=== PATIENT | male | born 1985 | race Caucasian/White ===

== ENCOUNTER 2024-04-04 01:33 | Inpatient (IN) | payer OTHER, SELFPAY ==
[2024-04-03 21:36] VITALS: BP 144/80
--- NOTE | 2024-04-03 21:51 | ED.GENMED ---
History of Present Illness
General
Chief Complaint: Fever
Time Seen by Provider: 04/03/24 21:51
Travel History
Have you had any contact with someone who has COVID-19?: No
Do you have any symptoms of coronavirus? Fever > 100 degrees, chills, cough, shortness of breath, sore throat, loss of taste or smell, muscle aches, or headache?: No
History of Present Illness
History of Present Illness:
HPI: 2 nights ago, the patient had a general unwell feeling including some discomfort in the lower abdomen. He had a bowel movement the next day but did not feel that much better. He had some vague dysuria. He developed some chills/fevers and
primary care doctor placed him on Bactrim yesterday. He has been having increasing chills and fevers and came in here for further evaluation due to general unwell feeling. He reported some vague neck and head discomfort however there is been no
confusion.
EXAM:
GENERAL: Well appearing in no distress however is markedly tachycardic and febrile
HEENT: Moist oral mucosa, normal chin to chest with no meningeal signs
CARDIOVASCULAR: No murmurs, tachycardic heart rate, regular rhythm, No chest wall tenderness
PULMONARY: No respiratory distress, breath sounds are clear and equal
ABDOMEN: Soft with no peritoneal signs, no significant tenderness, no CVA tenderness, no prostate tenderness on digital rectal examination
NEUROLOGIC: Excellent strength all extremities, no coordination deficits
PSYCHIATRIC: Appropriate mental status, normal insight and judgement
EXTREMITIES: Nontender, no edema, moves all extremities equally
SKIN: No rash, no lesions
TIME OF INITIAL ENCOUNTER: 10:10 PM
NUMBER AND COMPLEXITY OF PROBLEMS ADDRESSED AT THE ENCOUNTER
� Chronic conditions affecting care: BPH, prediabetes
� Acute Exacerbation and/or Progression of Chronic Illness: This is an acute problem
� Differential Diagnosis includes: Sepsis, bacteremia, UTI, pyelonephritis, ureteral stone, based on physical exam doubt meningitis
AMOUNT AND/OR COMPLEXITY OF DATA TO BE REVIEWED AND ANALYZED
� I performed an independent evaluation of and my interpretation is:
EKG: Sinus 161, rate is significant proved compared to 09/16/2022
CT: CT shows some slight symmetric perinephric stranding, prostate is noted to be enlarged
X-rays: Chest x-ray shows no acute abnormality
Laboratory Studies: White count 8.9, 89% neutrophils, hemoglobin 15.1, creatinine 1.4, urinalysis shows slight increased number of white cells at 6-10, COVID negative
Other:
� Review of other/old records: I reviewed lab work from 2021 which was unremarkable
� Clinical information was obtained by an independent historian: None needed
� Prescriptions/Medications Considered but not given:
� Further testing considered but not performed:
RISK OF COMPLICATIONS AND/OR MORBIDITY OR MORTALITY OF PATIENT MANAGEMENT
� Social determinants of health affecting care: Lives at home with girlfriend
� Discussion with other providers: Hospitalist for admission, Dr. Brink
� Escalation of care including admission/observation vs risk of discharge considered: The patient arrived markedly tachycardic but with excellent mental status. He was febrile. Tylenol and fluids were given. Heart rate has
improved however the patient's heart rate is still in the 120s despite meds given. Will add Toradol. Urinalysis shows only questionable signs of infection�will give Rocephin.
Past History
Past History
ED Past Medical History: None; Negative Asthma, HTN, Hypercholesterolemia or NIDDM
ED Past Surgical History: Urological (vasectomy)
Social History
Tobacco: Non-smoker
Alcohol: None
Personal:
Living: with family
Employment: Employed
Phy Exam
Physical Exam
Physical Exam:
See HPI
Course
Orders/Labs/Results
Orders:
Orders
04/03/24 21:40
Electrocardiogram (*1) Urgent
Reason for Study: Tachycardia
EKG- Treatment ONCE
04/03/24 21:52
0.9% Sodium Chloride 1000 ml [Nss] 1,000 ml IV BOLUS
0.9% Sodium Chloride 1000 ml [Nss] 1,000 ml IV BOLUS
Acetaminophen [Tylenol] 1,000 mg PO NOW STA
CR Chest Portable - 1 View Urgent
Comment:
Reason For Exam: sepsis
Reason Study Needs to be Portable: Patient Unstable
04/03/24 22:08
CMP [Comprehensive Metabolic Panel] Urgent
COVID-19 Antigen Urgent
Source: Nasal Swab
Complete Blood Count/With Diff Urgent
Lactic Acid Urgent
Urinalysis Urgent
Date Specimen was Collected: 04/03/24
Time Specimen was Collected: 21:40
Urine Microscopic Urgent
Date Specimen was Collected: 04/03/24
Time Specimen was Collected: 21:40
Blood Culture Urgent
ANGELLA Source: Blood/Venous
Specimen Description:
Date Specimen was Collected: 04/03/24
Time Specimen was Collected: 21:40
Influenza A+B Rapid Molecular Urgent
ANGELLA Source: Nasal Swab
Specimen Description:
04/03/24 22:15
CT Abd/pel Without Iv Or Oral Urgent
Comment:
Reason For Exam: sepsis; lower abd pain; some dysuria
04/03/24 22:30
Blood Culture Routine
ANGELLA Source: Blood/Venous
Specimen Description:
04/03/24 23:49
CefTRIAXone [Rocephin] 1,000 mg IV NOW STA
Ketorolac [Toradol] 15 mg IV NOW STA
04/03/24 23:54
Sterile Water [Sterile Water For Injection] 10 ml .ROUTE .STK-MED ONE
Abnormal Lab Results
04/03/24
22:08
MPV 10.8 H fL
(7.4-10.4)
Abs Immat Gran (auto) 0.1 H 10^3/uL
(0-0.05)
Absolute Neuts (auto) 7.9 H 10^3/uL
(1.4-6.5)
Absolute Lymphs (auto) 0.6 L 10^3/uL
(1.2-3.4)
Immature Gran % 0.7 H %
(0-0.5)
Neutrophils % 89.2 H %
(42.2-75.2)
Lymphocytes % 6.9 L %
(20.5-51.1)
Creatinine 1.4 H mg/dL
(0.7-1.3)
Glucose 131 H mg/dl
(70-99)
Urine Ketones Trace A
(Negative)
Urine Occult Blood Trace A
(Negative)
Ur Leukocyte Esterase Trace A
(Negative)
Urine WBC 6-10 A /HPF
(0-5)
04/03/24 22:08
04/03/24 22:08
Vital Signs
Initial and Last Documented VS:
Initial Vital Signs
Temp Pulse Resp BP Pulse Ox
102.8 F H 180 26 144/80 97
04/03/24 21:36 04/03/24 21:36 04/03/24 21:36 04/03/24 21:36 04/03/24 21:36
Last Documented Vital Signs
Temp Pulse Resp BP Pulse Ox
100.1 F 114 20 134/62 96
04/03/24 23:07 04/03/24 23:50 04/03/24 23:50 04/03/24 23:07 04/03/24 23:07
*Critical Care Note
Total Time (30-74mins, 75-104mins- exclusive of procedures): Not Applicable
ED Attending Note
-
Portions of this chart may have been created with voice recognition software.� Occasional wrong word or��sound alike� substitutions may have occurred due to the inherent limitations of voice recognition software.
Discharge Plan
Departure
Patient Disposition: Admit
Date of Disposition: 04/03/24
Time of Disposition: 23:48
Presentation/result/management discussed w/ accepting MD/DO: Hospitalist
Discharge Problem:
Sepsis
Prescriptions:
No Action
Bactrim
1 tab PO BID
Patient Comments:
pt does not know mg
Referrals:
Jayson Dominguez DO [Family Provider] -
Interventions
Interventions:
*Risk Screen - Suicide Last Done: 04/03/24 21:36
*General Assessment Last Done: 04/03/24 22:26
*Neglect/Abuse Screening Last Done: 04/03/24 21:36
ED- Fall Risk Assessment Last Done: 04/03/24 22:42
*ED COVID-19 Vaccine History Last Done: 04/03/24 21:56
ED-Male Genitourinary Assessment Last Done: 04/03/24 22:42
ED- Neurological Assessment Last Done: 04/03/24 22:42
ED-Skin Assessment Last Done: 04/03/24 22:42
Discharge Date and Time
Print Language: SAUDI ARABIAN
[2024-04-03] MEDS: TYLENOL 1000 MG PO (22:06)
[2024-04-03 22:07] VITALS: BMI 34.0
[2024-04-03] MEDS: NSS 1000 IV ×2 (22:20→22:23)
[2024-04-03 22:23] LABS: % Basophils 0.2 % (0-2); % Eosinophils 0.1 % (0-6); % Immature Granulocytes 0.7 % (0-0.5); % Lymphocytes 6.9 % (20.5-51.1); % Monocytes 2.9 % (1.7-9.3); % Neutrophils 89.2 % (42.2-75.2); Absolute Immature Granulocytes 0.1 10^3/uL (0-0.05); Absolute Lymphocytes 0.6 10^3/uL (1.2-3.4); Absolute Monocytes 0.3 10^3/uL (0.1-0.6); Absolute Neutrophils 7.9 10^3/uL (1.4-6.5); Hematocrit 42.3 % (39.0-52.0); Hemoglobin 15.1 g/dL (13.0-18.0); Mean Corp Hgb Conc. 35.7 g/dL (33.0-37.0); Mean Corpuscular Hgb 29.5 pg (27.0-31.0); Mean Corpuscular Volume 82.8 fL (80.0-94.0); Mean Platelet Volume 10.8 fL (7.4-10.4); Nucleated Red Blood Cells % 0 % (-); Platelet Count 145 10^3/uL (130-400); Red Blood Cell Count 5.11 10^6/uL (4.70-6.10); Red Cell Dist. Width 12.6 % (11.5-14.5); White Blood Cell Count 8.9 10^3/uL (4.8-10.8)
[2024-04-03 22:25] LABS: Urine Albumin Trace (Neg - Trace); Urine Bilirubin Negative (Negative); Urine Character Clear (Clear); Urine Color Yellow; Urine Glucose Negative (Negative); Urine Ketone Trace (Negative); Urine Leukocyte Trace (Negative); Urine Nitrite Negative (Negative); Urine Occult Blood Trace (Negative); Urine Specific Gravity 1.025 (<1.030); Urine Urobilinogen 1+ (Neg - 1+)
[2024-04-03 22:27] VITALS: BP 127/66
[2024-04-03 22:40] LABS: COVID-19 Antigen Negative (Negative)
[2024-04-03 22:43] LABS: Lactic Acid 1.7 mmol/L (0.7-2.0)
--- NOTE | 2024-04-03 22:43 | EDRN ---
Pt says he developed pain across his lower back on that made him feel like he had to have a bowel movement. Pt had a bowel movement Friday morning which did not change his pain much. Pain radiated into b/l groin and pt had burning with
urination. Pt thought he had a fever but says he took his temp and it was normal. Pt called his doctor and was put on bactrim BID which he started Friday at noon. Pt has been working this weekend and says he has felt fatigued. Pt noted rigors
tonight and his girlfriend encouraged him to come to the ED for evaluation. Pt denies cp, sob, abd pain, n/v, diarrhea, cough, dizziness.
[2024-04-03 22:44] LABS: ALT (SGPT) 35 U/L (0-50); AST (SGOT) 29 U/L (17-59); Albumin 4.9 g/dl (3.5-5.0); Alkaline Phosphatase 82 U/L (38-126); Blood Urea Nitrogen 18 mg/dl (9-20); Calcium 9.8 mg/dl (8.4-10.2); Carbon Dioxide 25 mmol/L (22-30); Chloride 102 mmol/L (98-107); Estimated Creatinine Clearance -2 ml/min; Glucose 131 mg/dl (70-99); Sodium 136 mmol/L (135-145); Total Bilirubin 1.3 mg/dl (0.2-1.3); Total Protein 8.2 g/dl (6.3-8.2); eGFR > 60.00
[2024-04-03 22:48] LABS: Urine Red Blood Cell 0-2 /HPF (0-2)
[2024-04-03 23:07] VITALS: BP 134/62
[2024-04-03] MEDS: TORADOL 15 MG IV (23:59)
[2024-04-04] VITALS (8 sets, daily range): BP systolic 111–147; BP diastolic 57–82; BMI 34.4
[2024-04-04] MEDS: ROCEPHIN 1000 MG IV (00:02)
--- NOTE | 2024-04-04 01:19 | HPS.HSE ---
Family Physician
-
Family Physician: Jayson Dominguez
Chief Complaint
-
Fevers / Chills / Urinary symptoms
History of Present Illness
Patient is a 39y M with no significant PMH who presents to ED complaining of shaking chills, sweats, myalgias, malaise and urinary complaints. Patient states that his symptoms started on evening with dysuria, low back discomfort,
genital discomfort and urge to urinate. He developed intermittent shaking chills, headache, myalgias and general 'flu-like' symptoms. He called his PCP on Friday and was prescribed Bactrim DS BID for suspected prostatitis. He states that his
urinary symptoms did seem to improve gradually after he started the abx (he has taken a total of 3 doses thus far).
On Friday, he had intermittent chills and myalgias throughout the day. In the evening he had shaking chills and sweating so severe that his girlfriend encouraged him to present to the ED for evaluation.
On arrival to the ED, patient was tachycardic to 180 with temperature of 102.8.
Patient has no history of medical issues and takes no daily medications.
He denies any high risk exposures. 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
He does frequent outside work around the home and notes that he was bitten by something this past week on his L wrist.
Medical History
Past Medical History
Past Medical History: Reports None
Past Surgical History: Reports Other
Additional Past Surgical History:
Vasectomy
Social History
Tobacco: Non-smoker
Alcohol: Occasional
Drug: None
Personal: Partner
Living: With Family
Family History
Family History: Not pertinent
Allergies / Home Medications
Allergies reflects when Allergies were last updated in [facility].
Home Medications with original date entered in [facility]
Allergy/Medication List:
Allergies
Allergy/AdvReac Type Severity Reaction Status Date / Time
No Known Allergies Allergy Verified 04/03/24 21:39
Home Medications
Bactrim 1 tab PO BID 04/03/24
Review of Systems
-
History Source: Patient
A 12 point ROS was completed and negative except as noted: Yes
Constitutional: Reports Fever, Fatigue, Night Sweats and Chills
EENT: Denies Sore Throat
Respiratory: Denies Cough or Trouble Breathing
Cardiac: Denies Chest Pain or Palpitations
Abdomen/GI: Denies Abdominal Pain, Nausea, Vomiting, Diarrhea, Constipated, Bloody Stools or Black Stools
: Reports Dysuria, Frequency, Flank Pain and Urgency; Denies Bleeding or Discharge
Musculoskeletal: Reports Muscle Pain; Denies Joint Pain
Neurological: Reports Headache; Denies Dizzy
Psych: Denies Depression or Anxiety
Physical Exam
Vital Signs
Vital Signs
Temp Pulse Resp BP Pulse Ox
100.1 F 114 24 116/57 96
04/03/24 23:07 04/04/24 00:00 04/04/24 00:00 04/04/24 00:00 04/03/24 23:07
Physical Exam
General: Other (39y M in no acute distress.)
HEENT: Moist mucous membranes and PERRLA
Respiratory: Clear; No Wheezes, Rales or Rhonchi
Cardiac: S1/S2 and Regular Rhythm; No Murmur
GI: Soft, Non Tender, Non Distended and Normal Bowel Sounds
Genito-urinary: No costovertebral tender
Musculoskeletal: No Clubbing, No Cyanosis and No Edema
Skin: Other (Small red spot on L wrist not currently c/w erythema migrans.)
Neuro: AO x 3 and Other (No nuchal rigidity or meningismus.)
Psych: No Anxious or Depressed
Laboratory Results
-
04/03/24 22:08
05/04/24 22:08
Laboratory Results
Lactic Acid 1.7 mmol/L (0.7-2.0) 04/03/24 22:08
Total Bilirubin 1.3 mg/dl (0.2-1.3) 04/03/24 22:08
AST 29 U/L (17-59) 04/03/24 22:08
ALT 35 U/L (0-50) 04/03/24 22:08
Alkaline Phosphatase 82 U/L (38-126) 04/03/24 22:08
Impression/Plan
-
A/P: Patient is a 39y M with no significant PMH who presents to ED complaining of three days of progressive urinary complaints with fevers, chills and myalgias.
UTI / Prostatitis
Sepsis secondary to the above
- Admit for further evaluation and treatment.
- Patient presents with fever, tachycardia and tachypnea with symptoms suggestive of urinary / prostate source of infection.
- Continue IV abx - will add doxycycline for ceftriaxone for prostatitis coverage and possibility of Lyme.
- Check PSA - ALYSSIA done in the ED and no marked tenderness appreciated.
- CT reviewed and is generally unremarkable - but the prostate is enlarged and I do appreciate a small area of hypodensity in the L which may simply be early calcification.
- Follow for clinical improvement with continued abx (already had noted improvement in urinary complaints - but not fevers / chills - on Bactrim).
- Supportive care including IVFs, antipyretics, etc.
- Follow-up available culture data and adjust treatment as warranted.
Renal Insufficiency
- SCr = 1.4 which is not significantly elevated from prior baselines (up to 1.2).
- IVFs as noted above and follow for changes.
DVT Prophylaxis: Lovenox
Code Status: Full
[2024-04-04] MEDS: LR 1000 IV ×3 (03:03→21:31)
[2024-04-04] MEDS: DILAUDID 0.5 MG IV (03:03)
[2024-04-04] MEDS: ZOFRAN 4 MG IV (03:11)
[2024-04-04] MEDS: VIBRAMYCIN 260 MG IV (03:14)
[2024-04-04 05:57] LABS: Hematocrit 45.6 % (39.0-52.0); Hemoglobin 15.2 g/dL (13.0-18.0); Mean Corp Hgb Conc. 33.3 g/dL (33.0-37.0); Mean Corpuscular Hgb 29.3 pg (27.0-31.0); Mean Corpuscular Volume 87.9 fL (80.0-94.0); Mean Platelet Volume 10.6 fL (7.4-10.4); Platelet Count 115 10^3/uL (130-400); Red Blood Cell Count 5.19 10^6/uL (4.70-6.10); Red Cell Dist. Width 12.8 % (11.5-14.5); White Blood Cell Count 6.3 10^3/uL (4.8-10.8)
[2024-04-04] MEDS: TORADOL 10 MG IV (06:20)
[2024-04-04 06:28] LABS: Blood Urea Nitrogen 14 mg/dl (9-20); Calcium 9.2 mg/dl (8.4-10.2); Carbon Dioxide 23 mmol/L (22-30); Chloride 106 mmol/L (98-107); Estimated Creatinine Clearance 105 ml/min; Glucose 123 mg/dl (70-99); Potassium 4.6 mmol/L (3.5-5.1); Sodium 137 mmol/L (135-145); eGFR > 60.00
[2024-04-04 06:48] LABS: PSA, Total - Screen 3.02 ng/ml (0.0-4.0)
[2024-04-04] MEDS: TYLENOL 650 MG PO ×3 (08:02→21:32)
--- NOTE | 2024-04-04 08:38 | W.PN.HOSP.TC ---
Today's Communication/Plan
-
Change antibiotics to levofloxacin
Increase Toradol
Stop Dilaudid
Hemoglobin A1c
Urine culture
Labs in the morning
Assessment / Plan
Assessment / Plan
Gen-AAOx3, NAD
HEENT-NC, AT, anicteric, clear oral mm
Neck-supple
CV-reg, no M, +S1/S2
Lungs-clear B/L
Abd-soft, NT, ND
Ext-no edema
Musculoskeletal-no cyanosis, clubbing
Skin-warm and dry
Neuro-grossly non-focal
Psych-calm, cooperative
Sepsis due to acute prostatitis -hemodynamically stable. Change antibiotics to levofloxacin. Blood cultures pending, send urine culture. Mild prostatic enlargement on CT scan noted. He had urinary symptoms prior to initiating outpatient
antibiotics.
Doubt Lyme disease. Discontinue doxycycline.
REENA -suspect due to sepsis, prostatitis. Creatinine 1.4 on admission, 1.3 today. Continue IV fluids.
Headache -likely related to sepsis. Discontinue opiates. Increase Toradol to 30 mg IV every 6 hours as needed. Discussed with nurse.
Hyperglycemia -rule out DM2. Check hemoglobin A1c.
Acute thrombocytopenia -likely due to sepsis. Platelet count 115k, monitor for now.
Obesity due to excess calories
Full code
Anticipated Discharge: 24 - 48 hours
Subjective/Interval History
-
Date of Service: April 04, 2024
Patient seen and examined. Complaining of not feeling well, headache.
Objective Data
-
Labs:
Laboratory Results
04/03/24 04/04/24
22:08 05:40
WBC 8.9 6.3
Hgb 15.1 15.2
Hct 42.3 45.6
Plt Count 145 115 L D
Sodium 136 137
Potassium 4.0 4.6
Chloride 102 106
Carbon Dioxide 25 23
BUN 18 14
Creatinine 1.4 H 1.3
Glucose 131 H 123 H
Calcium 9.8 9.2
Total Bilirubin 1.3
AST 29
ALT 35
Alkaline Phosphatase 82
Vital Signs:
Vital Signs
Temp Pulse Resp BP Pulse Ox
101.3 F H 104 18 146/82 94
04/04/24 07:25 04/04/24 07:25 04/04/24 07:25 04/04/24 07:25 04/04/24 07:25
I&O
04/03/24 04/04/24 04/05/24
06:59 06:59 06:59
Intake Total 480 / 480
Balance 480 / 480
Review of Systems
-
History Source: Patient
All other systems: Reviewed and negative
[2024-04-04] MEDS: TORADOL 30 MG IV ×2 (08:55→17:18)
[2024-04-04] MEDS: LEVAQUIN 150 IV (08:55)
--- NOTE | 2024-04-04 11:28 | CM ---
CM following re: discharge planning.
Reviewed pt's chart, met with pt. Pt's mother, stepfather and 5 year old son at bedside.
Pt is a 39 year old male, admitted with primary dx of Fever.
Pt reports he lives with spouse and 2 young children in a 2SH, 2 steps to enter. 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
PCP: Jayson Dominguez
Pharmacy: [facility]
D/C plan: home with anticipated no needs. Family to transport at discharge.
CM will follow with discharge plan updates as needed.
[2024-04-04 12:22] LABS: Glycohemoglobin (HgbA1c) 5.7 % (4.0-5.6)
[2024-04-04] MEDS: LOVENOX 40 MG SC (17:17)
[2024-04-05] MEDS: TORADOL 30 MG IV ×2 (02:48→20:29)
[2024-04-05 03:30] VITALS: BP 128/82
[2024-04-05] MEDS: TYLENOL 650 MG PO ×2 (06:01→12:37)
[2024-04-05 06:45] LABS: % Basophils 0.7 % (0-2); % Eosinophils 0.3 % (0-6); % Immature Granulocytes 0.7 % (0-0.5); % Lymphocytes 20.5 % (20.5-51.1); % Monocytes 12.3 % (1.7-9.3); % Neutrophils 65.5 % (42.2-75.2); Absolute Lymphocytes 0.6 10^3/uL (1.2-3.4); Absolute Monocytes 0.4 10^3/uL (0.1-0.6); Hematocrit 37.8 % (39.0-52.0); Hemoglobin 12.9 g/dL (13.0-18.0); Mean Corp Hgb Conc. 34.1 g/dL (33.0-37.0); Mean Corpuscular Hgb 29.5 pg (27.0-31.0); Mean Corpuscular Volume 86.5 fL (80.0-94.0); Nucleated Red Blood Cells % 0 % (-); Red Blood Cell Count 4.37 10^6/uL (4.70-6.10); Red Cell Dist. Width 12.8 % (11.5-14.5)
[2024-04-05 07:00] LABS: Blood Urea Nitrogen 11 mg/dl (9-20); Calcium 9.1 mg/dl (8.4-10.2); Carbon Dioxide 26 mmol/L (22-30); Chloride 104 mmol/L (98-107); Estimated Creatinine Clearance 124 ml/min; Glucose 105 mg/dl (70-99); Potassium 4.4 mmol/L (3.5-5.1); Sodium 133 mmol/L (135-145); eGFR > 60.00
[2024-04-05 07:25] VITALS: BP 123/76
[2024-04-05 08:15] LABS: Mean Platelet Volume 10.9 fL (7.4-10.4); Platelet Count 99 10^3/uL (130-400)
[2024-04-05] MEDS: LEVAQUIN 150 IV (09:41)
[2024-04-05 11:38] VITALS: BP 107/71
--- NOTE | 2024-04-05 12:54 | W.PN.HOSP.TC ---
Today's Communication/Plan
-
Await culture data
IV fluids for today
Antibiotics continued
Assessment / Plan
Assessment / Plan
Gen-AAOx3, NAD
HEENT-NC, AT, anicteric, clear oral mm
Neck-supple
CV-reg, no M, +S1/S2
Lungs-clear B/L
Abd-soft, NT, ND
Ext-no edema
Musculoskeletal-no cyanosis, clubbing
Skin-warm and dry
Neuro-grossly non-focal
Psych-calm, cooperative
Sepsis due to acute prostatitis -hemodynamically stable. Change antibiotics to levofloxacin. Blood cultures preliminary negative so far. Urine culture is in lab. Mild prostatic enlargement on CT scan noted. He had urinary symptoms prior to
initiating outpatient antibiotics.
Doubt Lyme disease. Discontinue doxycycline.
REENA -suspect due to sepsis, prostatitis. Creatinine 1.4 on admission, 1.1 today. Continue IV fluids.
Headache -likely related to sepsis. Discontinue opiates. Increase Toradol to 30 mg IV every 6 hours as needed. Discussed with nurse.
Hyperglycemia -rule out DM2. Check hemoglobin A1c.
Acute thrombocytopenia -likely due to sepsis. Platelet count 115k, monitor for now.
Obesity due to excess calories
Full code
Discussed with family member at bedside
Anticipated Discharge: Within 24 hours
Subjective/Interval History
-
Date of Service: April 05, 2024
States appetite slowly starting to improve
Status of mild dysuria which has improved significantly since admission
Objective Data
-
Labs:
Laboratory Results
04/05/24
05:42
WBC 3.0 L
Hgb 12.9 L
Hct 37.8 L
Plt Count 99 L
Sodium 133 L
Potassium 4.4
Chloride 104
Carbon Dioxide 26
BUN 11
Creatinine 1.1
Glucose 105 H
Calcium 9.1
Vital Signs:
Vital Signs
Temp Pulse Resp BP Pulse Ox
98 F 77 20 107/71 95
04/05/24 11:38 04/05/24 11:38 04/05/24 11:38 04/05/24 11:38 04/05/24 11:38
I&O
04/04/24 04/05/24 04/06/24
06:59 06:59 06:59
Intake Total 480 / 480 1440 / 1440
Output Total 350 / 350
Balance 480 / 480 1090 / 1090
--- NOTE | 2024-04-05 13:27 | CM ---
Reviewed the chart notes. CM continues to be available to patient/family and is monitoring medical plan for needs at discharge.
Plan: Discharge to home with no needs being identified at this time.
[2024-04-05 15:40] VITALS: BP 133/83
[2024-04-05 16:26] LABS: Lyme Antibody Screen, EIA Presump. Positive (Negative)
[2024-04-05] MEDS: LR 1000 IV (16:31)
[2024-04-05 23:45] VITALS: BP 125/84
[2024-04-06] MEDS: LR 1000 IV (01:21)
[2024-04-06] MEDS: TYLENOL 650 MG PO (04:53)
[2024-04-06 07:25] VITALS: BP 128/83
[2024-04-06 08:21] LABS: % Basophils 0.3 % (0-2); % Eosinophils 0.3 % (0-6); % Immature Granulocytes 0.3 % (0-0.5); % Lymphocytes 28.5 % (20.5-51.1); % Monocytes 11.5 % (1.7-9.3); % Neutrophils 59.1 % (42.2-75.2); Absolute Lymphocytes 0.8 10^3/uL (1.2-3.4); Absolute Monocytes 0.3 10^3/uL (0.1-0.6); Absolute Neutrophils 1.7 10^3/uL (1.4-6.5); Hematocrit 38.9 % (39.0-52.0); Hemoglobin 13.4 g/dL (13.0-18.0); Mean Corp Hgb Conc. 34.4 g/dL (33.0-37.0); Mean Corpuscular Hgb 29.1 pg (27.0-31.0); Mean Corpuscular Volume 84.4 fL (80.0-94.0); Mean Platelet Volume 10.9 fL (7.4-10.4); Nucleated Red Blood Cells % 0 % (-); Platelet Count 132 10^3/uL (130-400); Red Blood Cell Count 4.61 10^6/uL (4.70-6.10); Red Cell Dist. Width 12.9 % (11.5-14.5); White Blood Cell Count 2.9 10^3/uL (4.8-10.8)
[2024-04-06 08:47] LABS: Blood Urea Nitrogen 11 mg/dl (9-20); Calcium 9.4 mg/dl (8.4-10.2); Carbon Dioxide 29 mmol/L (22-30); Chloride 103 mmol/L (98-107); Estimated Creatinine Clearance 124 ml/min; Glucose 97 mg/dl (70-99); Potassium 4.4 mmol/L (3.5-5.1); Sodium 135 mmol/L (135-145); eGFR > 60.00
[2024-04-06] MEDS: LEVAQUIN 150 IV (10:12)
[2024-04-06] MEDS: LR IV (10:22)
--- NOTE | 2024-04-06 12:01 | W.PN.HOSP.TC ---
Today's Communication/Plan
-
see note
Assessment / Plan
Assessment / Plan
Gen-AAOx3, NAD
HEENT-NC, AT, anicteric, clear oral mm
Neck-supple
CV-reg, no M, +S1/S2
Lungs-clear B/L
Abd-soft, NT, ND
Ext-no edema
Musculoskeletal-no cyanosis, clubbing
Skin-warm and dry
Neuro-grossly non-focal, awake alert and oriented.
Psych-calm, cooperative
Sepsis due to acute prostatitis -hemodynamically stable. CT scan on admission was done without contrast however it did show finding of mild bilateral perinephric stranding, nonspecific. Suggest correlation with UA for any signs of infection.
Mildly enlarged prostate gland. Prior to arrival patient did take 3 doses of Bactrim and thus could explain that patient UA was bland and urine culture without any growth. Bactrim probably was appropriate antibiotics and with negative. culture
data. However with perinephric stranding and patient stated of subjective fever recommend to complete course of Bactrim on DC in addition to antibiotics received here. Patient verbalized understanding and agreed to planning. Told patient to
increase his oral intake hydration. Also recommended to patient if he repeat symptoms after completion of antibiotic course then to undergo repeat UA with culture and follow-up with urology.
Doubt Lyme disease. Discontinue doxycycline.
REENA -suspect due to sepsis, prostatitis. Creatinine 1.4 on admission, 1.1 today. DC fluids. Tolerating p.o. intake.
Headache -likely related to sepsis. Significant improved since admission. No other neurological symptoms.
Hyperglycemia -A1c 5.7.
Acute thrombocytopenia -likely due to sepsis. Resolved.
Obesity due to excess calories
Full code
Discussed with family member at bedside
More than 30 minutes spent in discharge including
Final examination of the patient
Summarizing hospital stay
Instructions for continuing care to all relevant caregivers
Preparation of discharge records, prescriptions, and referral forms
Total time spent (in minutes): 52
Anticipated Discharge: Today
Subjective/Interval History
-
Date of Service: April 06, 2024
remains afebrile
tolerating diet
voiding without any difficulty
denies flank pain
Objective Data
-
Labs:
Laboratory Results
04/06/24
07:51
WBC 2.9 L
Hgb 13.4
Hct 38.9 L
Plt Count 132 D
Sodium 135
Potassium 4.4
Chloride 103
Carbon Dioxide 29
BUN 11
Creatinine 1.1
Glucose 97
Calcium 9.4
Vital Signs:
Vital Signs
Temp Pulse Resp BP Pulse Ox
97.7 F 80 16 128/83 95
04/06/24 07:25 04/06/24 07:25 04/06/24 07:25 04/06/24 07:25 04/06/24 07:25
I&O
04/05/24 04/06/24 04/07/24
06:59 06:59 06:59
Intake Total 1440 / 1440 1600 / 1600
Output Total 350 / 350
Balance 1090 / 1090 1600 / 1600
--- NOTE | 2024-04-06 12:09 | W.DCSUMMARY ---
Discharge Summary
Discharge Data
Date of Admission: 04/04/24
Date of Discharge: 04/06/24
-
Pending Results: No
Hospital Course
39-year-old male with no significant past medical history who is presenting with complaints of chills myalgia and dysuria. Patient took 3 doses of Bactrim prior to arrival after calling his primary doctor. Patient was found to be septic on
admission. Blood cultures were checked and found to be negative. UA was found to be bland. Patient was started on Levaquin. Patient had mild elevated creatinine which resolved and trended down with IV fluid resuscitation. Patient was tolerating
diet and IV fluid was discontinued. Patient headache resolved. Patient was tolerating p.o. intake without any difficulty. CT scan on admission was done without contrast however it did show finding of mild bilateral perinephric stranding,
nonspecific. Suggest correlation with UA for any signs of infection. Mildly enlarged prostate gland. Prior to arrival patient did take 3 doses of Bactrim and thus could explain that patient UA was bland and urine culture without any growth.
Bactrim probably was appropriate antibiotics and with negative. culture data. However with perinephric stranding and patient stated of subjective fever recommend to complete course of Bactrim on DC in addition to antibiotics received here.
Patient verbalized understanding and agreed to planning. Told patient to increase his oral intake hydration. Also recommended to patient if he repeat symptoms after completion of antibiotic course then to undergo repeat UA with culture.
Discharge Plan
-
Patient Disposition: Home (Routine Discharge)
Discharge Diagnosis/Procedures: Sepsis likely secondary suspected acute prostatitis
Acute kidney injury
Headache
Thrombocytopenia secondary to sepsis
Condition: Fair
Diet: Regular
Activity: As tolerated
Driving Restrictions: As prior to admission
Referrals:
Jayson Dominguez DO [Family Provider] - in less than 1 week
Prescriptions:
Continued
sulfamethoxazole-trimethoprim 800-160 mg tablet
1 tab PO BID
Rx Instructions:
FILLED 04/02/24 #20 X10 DAY SUPPLY
Discharge Orders:
Discharge Patient (As Directed); Ordered 04/06/24
Ordered By: Andres Godoy
Discharge Date and Time
Discharge Date/Time: 04/06/24 13:01
Print Language: GUATEMALAN
[2024-04-06 12:20] VITALS: BP 128/72
[2024-04-08 17:36] LABS: Lyme Ab Western Blot IgG Positive (Negative); Lyme Ab Western Blot IgM Negative (Negative)
== END 2024-04-06 13:01 | disposition home or self-care (01) | DRG 872 ==
LOC: 2 NORTH 01:33
PROVIDERS: Hospitalist; ADMITTING PHYSICIAN Hospitalist; ATTENDING PHYSICIAN Hospitalist; EMERGENCY PHYSICIAN Emergency Medicine; FAMILY PHYSICIAN Family Medicine
DX: A41.9 Sepsis, unspecified organism (principal); N17.9 Acute kidney failure, unspecified; N41.0 Acute prostatitis; Z11.52 Encounter for screening for COVID-19; N28.9 Disorder of kidney and ureter, unspecified; E66.09 Other obesity due to excess calories; Z68.34 Body mass index [BMI] 34.0-34.9, adult; D69.59 Other secondary thrombocytopenia
CPT/HCPCS: 71045; 74176; 80048; 80053; 81003; 81015; 83036; 83605; 85025; 85027; 86617; 86618; 87040; 87086; 87502; 87811; 93005; 96361; 96374; 96375; 99285; G0103

== ENCOUNTER → 2025-03-12 10:09 | Outpatient (REF) | payer OTHER, SELFPAY | LOC: RAD 10:09 | PROVIDERS: ATTENDING PHYSICIAN Family Medicine | DX: M25.561 Pain in right knee (principal) | CPT/HCPCS: 73564 ==

== ENCOUNTER 2025-07-05 14:07 | Emergency (ER) | payer OTHER, SELFPAY ==
[2025-07-05 14:12] VITALS: BP 167/103
[2025-07-05] MEDS: ADACEL 0.5 ML IM (15:08)
--- NOTE | 2025-07-05 15:22 | ED.SKININJ ---
HPI-Injury
General
Chief Complaint: Skin Surface Trauma
Source: patient
Exam Limitations: none
Time Seen by Provider: 07/05/25 14:18
Nursing documentation reviewed up to this point in time: agreed with
History of Present Illness-Injury
Is this injury a work related problem?: Yes
Is pt an associate of [facility]?: No
Initial Injury comments:
Accidentally cut hand on saw. Has lac to left dorsal hand between 3rd and 4th fingers. Full ROM to fingers, equal sensation bilaterally. Injury occurred just [employer]
Past History
Past History
ED Past Medical History: None; Negative Asthma, HTN, Hypercholesterolemia or NIDDM
ED Past Surgical History: Urological (vasectomy)
Social History
Tobacco: Non-smoker
Alcohol: None
Personal:
Living: with family
Employment: Employed
Review of Systems
Review of Systems
Allergies reviewed?: Yes
All Other Systems: ROS reviewed and negative except as documented in HPI and ROS
Constitutional: Reports no symptoms
Musculoskeletal: Reports no symptoms
Skin: Reports other (laceration to left dorsal hand)
Neurological: Reports no symptoms
Psychiatric: Reports no symptoms
Skin Exam
Laceration
Left Dorsal Hand:
Orientation: vertical
Type of Laceration: simple
Any active bleeding?: no active bleeding
Distal skin color and temperature: normal-warm & good color
Normal distal neurovascular exam: Yes
Range of motion: full
Phy Exam
General Physical Exam
General Presentation: well appearing and no apparent distress
General age: appears stated age
General Skin: warm and dry
General Habitus: normal
Musculoskeletal Exam
Musculoskeletal Exam: full ROM and neuro vasc intact
Skin Exam
Skin Exam: normal color, warm/dry and no rash
Psychiatric Exam
Psychiatric Exam: normal mood/affect
Course
Orders/Labs/Results
Orders:
Orders
07/05/25 15:05
Tetanus/Diphth/Acelpertussis [Adacel] 0.5 ml IM .ONCE ONE
Hand, Left 3 View [CR Hand - Left Min 3 Views] Urgent
Comment:
Reason For Exam: trauma
Vital Signs
Initial and Last Documented VS:
Initial Vital Signs
Temp Pulse Resp BP Pulse Ox
98.6 F 93 15 167/103 96
07/05/25 14:12 07/05/25 14:12 07/05/25 14:12 07/05/25 14:12 07/05/25 14:12
Last Documented Vital Signs
Temp Pulse Resp BP Pulse Ox
98.6 F 93 15 167/103 96
07/05/25 14:12 07/05/25 14:12 07/05/25 14:12 07/05/25 14:12 07/05/25 14:12
Procedures
Laceration Closure
Left Dorsal Hand:
Status of Wound: clean
Description of Wound Edges: sharp
Preparation: cleaned with saline and cleaned with Betadine
Anesthesia: 1% Lidocaine with epi
Revision/Debridement: routine- no revision
Wound exploration: explored to base- no FB and no tendon involvement
Type of Closure: single layer closure
Skin Closure Material: 5-0 prolene
Number of sutures: 6
*Radiology
Radiology exam reviewed: radiology read reviewed
*Pulse Oximetry
SaO2: 96
Oxygen Mode of Delivery: Room air
Patient hypoxic: no
*Critical Care Note
Total Time (30-74mins, 75-104mins- exclusive of procedures): Not Applicable
ED Attending Note
-
Portions of this chart may have been created with voice recognition software.� Occasional wrong word or��sound alike� substitutions may have occurred due to the inherent limitations of voice recognition software.
Discharge Plan
Departure
Patient Disposition: Home (Routine Discharge)
Date of Disposition: 07/05/25
Time of Disposition: 15:20
Patient with high blood pressure during this ER visit?: No
Condition: Good
Covid-19: Not Applicable
Discharge Problem:
Hand laceration
Instructions: Laceration Repair With Stitches (DC)
Prescriptions:
No Action
sulfamethoxazole-trimethoprim 800-160 mg tablet
1 tab PO BID
Rx Instructions:
FILLED 04/02/24 #20 X10 DAY SUPPLY
doxycycline hyclate 100 mg capsule
100 mg PO BID Qty: 28 0RF
Referrals:
Jayson Dominguez DO [Family Provider, Family Practice]
Referral Note: Sutures can be removed in 7-10 days
Interventions
Interventions:
*Risk Screen - Suicide Last Done: 07/05/25 14:12
*General Assessment Last Done: 07/05/25 14:12
*Neglect/Abuse Screening Last Done: 07/05/25 14:12
*ED- Fall Risk Assessment Last Done: 07/05/25 14:31
*ED COVID-19 Vaccine History Last Done: 07/05/25 14:31
ED-Skin Assessment Last Done: 07/05/25 14:32
Discharge Date and Time
Print Language: TRINIDADIAN
[2025-07-05 15:25] VITALS: BP 165/98
== END 2025-07-05 15:32 | disposition home or self-care (01) ==
LOC: EMR 14:07
PROVIDERS: EMERGENCY PHYSICIAN Emergency Medicine; FAMILY PHYSICIAN Family Medicine
DX: S61.412A Laceration without foreign body of left hand, initial encounter (principal); W31.89XA Contact with other specified machinery, initial encounter; Z23 Encounter for immunization; R73.03 Prediabetes; Z86.16 Personal history of COVID-19
CPT/HCPCS: 99283; 12001; 90471; 73130; 90715

== ENCOUNTER 2025-07-14 11:16 | Emergency (ER) | payer OTHER, SELFPAY ==
[2025-07-14 11:18] VITALS: BP 172/94
[2025-07-14 12:12] VITALS: BMI 36.2
--- NOTE | 2025-07-14 12:17 | ED.GENMED ---
History of Present Illness
General
Chief Complaint: Male Genito-Urinary Symptoms
Source: patient
Exam Limitations: none
Time Seen by Provider: 07/14/25 11:30
History of Present Illness
History of Present Illness:
40yoM with a history of prior prostatitis presenting for evaluation of testicular pain. Symptoms began last night. He reports pain in his right testicle. He initially thought he may have sat on it the wrong way and tried to readjust. Pain
continued into this morning and he was seen by his PCP. He was sent to the ED for evaluation. He did develop some lower back and lower abdominal pressure today. He denies any difficulty urinating, fevers, chills, nausea, vomiting. He denies any
concern for STDs.
Past History
Past History
ED Past Medical History: None; Negative Asthma, HTN, Hypercholesterolemia or NIDDM
ED Past Surgical History: Urological (vasectomy)
Social History
Tobacco: Non-smoker
Alcohol: None
Personal:
Living: with family
Employment: Employed
Phy Exam
General Physical Exam
General Presentation: well appearing and no apparent distress
General Skin: warm and dry
General Habitus: normal
General Mental: alert
ENT Exam
ENT Exam: normocephalic
Pulmonary Exam
Pulmonary Exam: no respiratory distress
Gastrointestinal Exam
Gastrointestinal Exam: non tender, soft, non distended and no cva tenderness
Genitourinary Exam Male
Exam Male: circumcised, no evidence of trauma, no testicular swelling and other (+R testicular tenderness. No scrotal swelling or skin changes noted. No palpable hernia.)
Neurological Exam
Neurological Exam: alert
Lenora Coma Scale
Eye Opening: Spontaneous
Verbal Response: Oriented
Motor Response: Obeys Commands
GCS Total Score: 15
Skin Exam
Skin Exam: normal color and warm/dry
Psychiatric Exam
Psychiatric Exam: normal mood/affect
Course
Orders/Labs/Results
Orders:
Orders
07/14/25 11:22
Scrotum US [US Scrotum] Urgent
Comment:
Reason For Exam: R testicle pain
07/14/25 12:16
CT Abd/pelvis W Iv Cont Urgent
Comment:
Reason For Exam: lower abd/back pressure, hx of prostatitis
0.9% Sodium Chloride 1000 ml [Nss] 1,000 ml IV BOLUS
07/14/25 12:49
Complete Blood Count/With Diff Urgent
Comprehensive Metabolic Panel Urgent
07/14/25 14:42
Urinalysis Reflex To Culture Urgent
Date Specimen was Collected: 07/14/25
Time Specimen was Collected: 14:35
Urine Microscopic Reflex Cult Urgent
Abnormal Lab Results
07/14/25
14:42
Urine Bacteria (Reflex) Few A
(Negative)
Urine Albumin (Reflex) 1+ A
(Neg - Trace)
07/14/25 12:49
07/14/25 12:49
Vital Signs
Initial and Last Documented VS:
Initial Vital Signs
Temp Pulse Resp BP Pulse Ox
98.3 F 74 18 172/94 97
07/14/25 11:18 07/14/25 11:18 07/14/25 11:18 07/14/25 11:18 07/14/25 11:18
Last Documented Vital Signs
Temp Pulse Resp BP Pulse Ox
98.3 F 81 18 139/88 100
07/14/25 11:18 07/14/25 12:47 07/14/25 12:47 07/14/25 12:47 07/14/25 12:47
MDM/Problems Addressed
Differential Diagnosis Includes:
40yoM here with R testicular pain since last night. Developed lower abd/back pressure today. Sent in by PCP. Hx of prostatitis but states this feels different. He is hypertensive with otherwise stable vitals. He is well appearing in no distress. R
testicular tenderness without scrotal swelling. Differential diagnosis includes but is not limited to: epididymitis, orchitis, testicular torsion, kidney stone, less likely prostatitis
Initial ED plan: Scrotal ultrasound obtained in triage which is normal. Will check CBC, CMP, UA, and CT abdomen with IV contrast.
Final assessment: Labs unremarkable including normal white count and renal function. CT negative for acute findings. Case signed out to Blaze Leblanc PA-C pending UA results.
*Pulse Oximetry
SaO2: 97
Oxygen Mode of Delivery: Room air
Patient hypoxic: no (97%)
*Critical Care Note
Total Time (30-74mins, 75-104mins- exclusive of procedures): Not Applicable
ED Attending Note
-
Portions of this chart may have been created with voice recognition software.� Occasional wrong word or��sound alike� substitutions may have occurred due to the inherent limitations of voice recognition software.
Discharge Plan
Departure
Patient Disposition: Home (Routine Discharge)
Date of Disposition: 07/14/25
Time of Disposition: 14:58
Patient with high blood pressure during this ER visit?: Yes
Discharge Problem:
Pain in right testicle, Abdominal pressure
Instructions: How to Perform a Testicular Self-Exam
Prescriptions:
No Action
sulfamethoxazole-trimethoprim 800-160 mg tablet
1 tab PO BID
Rx Instructions:
FILLED 04/02/24 #20 X10 DAY SUPPLY
doxycycline hyclate 100 mg capsule
100 mg PO BID Qty: 28 0RF
Referrals:
Jayson Dominguez DO [Family Provider, Family Practice]
Activity Restrictions/Additional Instructions:
Take ibuprofen as needed for pain. You may also use scrotal elevation and ice as needed.
Please follow-up with your family doctor. Return to the ER with any new or worsening symptoms including fevers or severe pain.
Interventions
Interventions:
*Risk Screen - Suicide Last Done: 07/14/25 11:21
*General Assessment Last Done: 07/14/25 11:21
*Neglect/Abuse Screening Last Done: 07/14/25 11:21
*ED- Fall Risk Assessment Last Done: 07/14/25 12:12
*ED COVID-19 Vaccine History Last Done: 07/14/25 11:21
ED-Male Genitourinary Assessment Last Done: 07/14/25 12:12
Discharge Date and Time
Print Language: THAI
[2025-07-14] MEDS: NSS 1000 IV (12:45)
[2025-07-14 12:47] VITALS: BP 139/88
[2025-07-14 12:55] LABS: Hematocrit 42.0 % (39.0-52.0); Hemoglobin 14.4 g/dL (13.0-18.0); Mean Corp Hgb Conc. 34.3 g/dL (33.0-37.0); Mean Corpuscular Volume 84.8 fL (80.0-94.0); Nucleated Red Blood Cells % 0 % (-); Platelet Count 191 10^3/uL (130-400); Red Cell Dist. Width 13.0 % (11.5-14.5)
[2025-07-14 13:09] LABS: ALT (SGPT) 48 U/L (0-50); AST (SGOT) 31 U/L (17-59); Albumin 4.8 g/dl (3.5-5.0); Alkaline Phosphatase 76 U/L (38-126); Blood Urea Nitrogen 19 mg/dl (9-20); Calcium 9.3 mg/dl (8.4-10.2); Carbon Dioxide 28 mmol/L (22-30); Chloride 106 mmol/L (98-107); Estimated Creatinine Clearance > 125 ml/min; Glucose 87 mg/dl (70-99); Potassium 4.3 mmol/L (3.5-5.1); Sodium 141 mmol/L (135-145); Total Protein 7.7 g/dl (6.3-8.2); eGFR > 60.00
[2025-07-14 15:18] LABS: Urine Character Clear (Clear)
[2025-07-14 15:41] LABS: Urine Red Blood Cell 0-2 /HPF (0-2); Urine Squamous Cell 0-2 /LPF (Few); Urine White Cell 0-2 /HPF (0-5)
--- NOTE | 2025-07-14 16:30 | EDRN ---
Reviewed discharge instructions with patient. Verbalized understanding. Ambulated with steady gait to the lobby.
[2025-07-14 16:44] VITALS: BP 146/89
== END 2025-07-14 16:30 | disposition home or self-care (01) ==
LOC: EMR 11:16
PROVIDERS: Physician Assistant; EMERGENCY PHYSICIAN Emergency Medicine; FAMILY PHYSICIAN Family Medicine
DX: N50.811 Right testicular pain (principal); R10.9 Unspecified abdominal pain
CPT/HCPCS: 99284; 96360; 74177; 76870; 80053; 81003; 81015; 85025; 93976; Q9967